=== PATIENT | female | born 1990 | race Caucasian/White ===

== ENCOUNTER 2018-06-08 16:45 | Inpatient (IN) ==
[2018-06-08] MEDS ORDERED: Sod Chloride 0.9% Inj 1,000 ML IV.CONT PRN (17:25)
[2018-06-08] MEDS ORDERED: fentaNYL Citrate Inj 100 MCG/2 ML Ampul IV.PUSH PRN ×2 (17:25)
[2018-06-08] MEDS ORDERED: Oxytocin 30 Units/500ml Premix 30 UNITS/500 ML BAG IV.SIG ONE (17:25)
[2018-06-08] MEDS ORDERED: Sodium Chlor 0.9% Inj 500 ML IV.SIG PRN (17:25)
[2018-06-08] MEDS ORDERED: Naloxone Inj 0.4 MG/ML Vial IV.PUSH PRN (17:25)
[2018-06-08] MEDS ORDERED: Citric Acid/Sodium Citrate Liq 30 ML UDC PO SCH (17:30)
--- NOTE | 2018-06-08 17:30 | ED ---
History of Present Illness Primary Care Physician: NOT REQUIRED Chief Complaint: ctx History of Present Illness: Pt is a 28y/o @ 39.5wks. She has PNC with Dr. Hudson. She presented yesterday for ctx and was 2cm. She re-presented today with ctx since 8:30pm last evening which have become intense 3hrs ago. She denies LOF, VB. +FM. She has a h/o CSx1 for bradycardia at 8cm. She desires . GBS neg. Weeks Gestation:: 39 Para: 1 : 2 Review of Systems All other systems reviewed negative except as stated in HPI PMFSH - History History Provided By: Patient - Surgical History Surgical History: Surgical History (Last Updated 05/25/18 @ 16:58 by Charly Medina MD) History of delivery - Tobacco History Second Hand Smoke Exposure: No Smoking Status: Never smoker - Alcohol History How Often Do You Have a Drink Containing Alcohol: Never - Travel History Recent Travel in the [place] Within the Last 8 Weeks: No Recent Travel Out of the Country Within the Last 8 Weeks: No - Immunization History Tetanus Immunization: <5 Years Medications and Allergies Active Medications: Active Medications Citric Acid/Sodium Citrate (Sodium Citrate/Citric Acid Liq) 30 ml PO FLEXIBLE NANNY IBIS Stop: 06/12/18 17:29 Fentanyl Citrate (Fentanyl Inj) 50 mcg IV.PUSH Q1H PRN PRN Reason: Pain Scale 3 - 5 Lactated Ringer's (Lr 1000 Ml Inj) 1,000 mls @ 125 mls/hr IV.CONT .Q8H [facility] Lactated Ringer's (Lr 1000 Ml Inj) 1,000 mls @ 3,000 mls/hr IV.SIG UNSCH PRN PRN Reason: compromise or epidural Sodium Chloride (Ns Inj) 500 mls @ 1,000 mls/hr IV.SIG UNSCH PRN PRN Reason: SEE LABEL COMMENTS Sodium Chloride (Ns Inj) 1,000 mls @ 100 mls/hr IV.CONT .Q10H PRN PRN Reason: SEE LABEL COMMENTS Lidocaine HCl (Xylocaine 1% Inj) 0.1 ml I-DERMAL PRN PRN PRN Reason: For IV start Stop: 06/11/18 17:24 Lidocaine HCl (Xylocaine 1% Inj) 10 ml INFILTRATN PRN PRN PRN Reason: For episiotomy repair Stop: 06/10/18 17:24 Mineral Oil (Muri-Lube Oil) 10 ml TOPICAL PRN PRN PRN Reason: PRN perineal massage Ondansetron HCl (Zofran Inj) 4 mg IV.PUSH Q6H PRN PRN Reason: NAUSEA OR VOMITING Sodium Chloride (Ns Flush) 2 ml IV.FLUSH PRN PRN PRN Reason: FLUSH AFTER USING IV ACCESS Sodium Chloride (Ns Flush) 2 ml IV.FLUSH BID IBIS Allergies Allergy/AdvReac Type Severity Reaction Status Date / Time No Known Allergies Allergy Verified 05/25/18 16:40 Home Medications Medication Instructions Recorded Confirmed Type PNV cmb#95-ferrous fumarate-FA 1 tab PO DAILY 05/25/18 06/08/18 History [] Exam Vital signs: Vital Signs 06/08/18 16:59 Temperature 97.7 F Respiratory Rate 18 Intake & Output 06/07/18 06/08/18 06/08/18 18:59 06:59 18:59 Weight 80 kg Narrative: General: well developed, well nourished, no acute distress HEENT: normocephalic atraumatic, extraocular movements intact, neck supple Abdomen: soft, gravid, nontender, nondistended Uterus: fundus term Extremities: full range of motion Skin: normal coloration, no rashes, no suspicious skin lesions noted Neurologic: cranial nerves 2-12 grossly intact, normal muscle tone, normal gait Psychiatric: normal mood and affect, appropriate FHTs: 130s, +accels, no decels, moderate variability, reactive [place]: ctx q2-3m Cvx: /-1 Assessment and Plan - Diagnosis (1) 39 weeks gestation of Code(s): Z3A.39 - 39 weeks gestation of Status: Acute (2) Previous section complicating Code(s): O34.219 - Maternal care for unspecified type scar from previous delivery Status: Acute (3) Uterine contractions during Code(s): O62.2 - Other uterine inertia Status: Acute - Plan 28y/o @ 39.5wks with h/o CSx1 in labor. -- admit to L&D -- CLD, CEFM/toco -- epidural/freeman PRN -- FHTs cat 1 -- GBS neg Dr. Paredes (communications coordinator) notified of pt status and agrees with plan of care. She will assume care of the pt. Courtesy orders placed. Discharge Plan - Physicians Team ED Provider: Rachel Elizabeth V Primary Care Provider: NOT REQUIRED, - Rxs /Orders / Referrals /Forms Prescriptions: No Action PNV cmb#95-ferrous fumarate-FA [] 28 mg iron- 800 mcg Tablet 1 tab PO DAILY - Discharge Instructions Print Language: Hebrew
[2018-06-08 17:35] VITALS: RESP 18
[2018-06-08 18:00] LABS: Baso % (Auto) 0.3 % (0.0-2.0); Eos # (Auto) 0.1 th/mm3 (0.0-0.4); Eos % (Auto) 0.6 % (0.0-4.0); Hematocrit 36.3 % (35.0-46.0); Lymph # (Auto) 1.8 th/mm3 (1.0-4.8); Lymph % (Auto) 14.8 % (9.0-44.0); Mean Corpuscular Volume 81.9 fL (80.0-100.0); Mean Platelet Volume 10.5 fL (7.0-11.0); Mono # (Auto) 0.6 th/mm3 (0.0-0.9); Mono % (Auto) 5.3 % (0.0-8.0); Neut # (Auto) 9.5 th/mm3 (1.8-7.7); Platelet Count 175 th/mm3 (150-450); Red Blood Count 4.44 mil/mm3 (4.00-5.30); Red Cell Distribution Width 15.4 % (11.6-17.2)
[2018-06-08] MEDS ORDERED: fentaNYL 2MCG-Bupiv 0.125% Epi 150 ML EPIDURAL ONE (18:04)
[2018-06-08 18:23] LABS: Amphetamine Urine With Conf Neg (Neg); Benzodiazepine Urine With Conf Neg (Neg)
[2018-06-08 18:29] LABS: Bilirubin,Urine Negative (Negative); Clarity,Urine Hazy (Clear); Color,Urine Yellow (Yellw/Straw); Glucose,Urine (UA) Negative (Negative); Leukocyte Esterase,Urine Small (Negative); Mucus,Urine Few /lpf (Occasional); Nitrite,Urine Negative (Negative); Specific Gravity,Urine 1.013 (1.002-1.035); Squamous Epithelial Cell,Urine 1 /hpf (0-5)
[2018-06-08] MEDS ORDERED: fentaNYL 2MCG-Bupiv 0.125% Epi 150 ML EPIDURAL SCH (19:00)
[2018-06-09] MEDS ORDERED: Lidocaine PF 1% Inj 5 ML Vial ONE (01:54)
[2018-06-09] MEDS ORDERED: Zolpidem Tartrate 5 MG Tablet PO PRN (02:53)
[2018-06-09] MEDS ORDERED: Bisacodyl 10 MG Supp RECTAL PRN (02:53)
[2018-06-09] MEDS ORDERED: Benzocaine 20% Top Spray 60 ML Can TOPICAL PRN (02:53)
[2018-06-09] MEDS ORDERED: Witch Hazel 50%/Glyderin 12.5% 40 Pad Jar RECTAL PRN (02:53)
[2018-06-09] MEDS ORDERED: Naloxone Inj 0.4 MG/ML Vial IV.PUSH PRN (02:53)
--- NOTE | 2018-06-09 02:55 | P.OBDELI ---
Weeks Gestation: 39 Patient Started Active Labor: Yes Medical Induction of Labor: No Artificial Rupture of Membrane: Yes Artificial ROM Date: 06/09/18 Artificial ROM Time: 02:00 Anesthesia: Epidural Episiotomy: none Vaginal Delivery: Normal Presentation: Occiput anterior Nuchal Cord: None Delayed Cord Clamping (45 sec): Yes Placenta: Spontaneous delivery, 3 vessel cord Laceration: 2 deg Repair: Chromic running Estimated blood loss (mL): 300 Infant: Male (living male after TOLAC from [facility] with clear fluid and no nuchal cord 8 and 9 apgars. Weight is pending )
[2018-06-09] MEDS ORDERED: Oxytocin 30 Units/500ml Premix 30 UNITS/500 ML BAG IV.CONT SCH (03:00)
[2018-06-09] MEDS: Acetaminophen 325 MG Tablet PO PRN ×3 (06:49→21:46)
[2018-06-09] MEDS: Senna/Docusate Sodium 8.6/50 MG Tablet PO SCH ×2 (13:44→21:47)
[2018-06-09] MEDS ORDERED: Diphtheria/Tetanus/Pertussis Vaccine Inj 0.5 ML Syringe IM ONE (16:00)
[2018-06-09] MEDS ORDERED: Measles/Mumps/Rubella Vaccine Inj 0.5 ML Vial SQ ONE (16:00)
[2018-06-10] MEDS: Acetaminophen 325 MG Tablet PO PRN ×2 (05:53→13:35)
--- NOTE | 2018-06-10 13:07 | P.PNOB ---
Subjective Post day: 1 Objective Vital Signs/I&O: Vital Signs 06/09/18 20:00 06/10/18 08:00 Temperature 98.1 F 97.5 F L Pulse Rate 97 H 84 Respiratory Rate 18 18 Blood Pressure 113/72 124/69 Result Diagrams: 06/08/18 17:38 Objective Remarks: GENERAL: Well-nourished, well-developed patient. CARDIOVASCULAR: Regular rate and rhythm without murmurs, gallops, or rubs. RESPIRATORY: Breath sounds equal bilaterally. No accessory muscle use. ABDOMEN/GI: Abdomen soft, non-tender. Fundus: Firm, non-tender at umbilicus. GENITOURINARY: Light to moderate bleeding. EXTREMITIES: No cyanosis or edema, non-tender, without signs of DVT. 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 [facility] Stop: 06/12/18 17:29 Fentanyl Citrate (Fentanyl Inj) 50 mcg IV.PUSH Q1H PRN PRN Reason: Pain Scale 3 - 5 Fentanyl Citrate (Fentanyl Inj) 100 mcg IV.PUSH Q1H PRN PRN Reason: PAIN SCALE 6 TO 10 Lactated Ringer's (Lr 1000 Ml Inj) 1,000 mls @ 125 mls/hr IV.CONT .Q8H [facility] Lactated Ringer's (Lr 1000 Ml Inj) 1,000 mls @ 3,000 mls/hr IV.SIG UNSCH PRN PRN Reason: compromise or epidural Sodium Chloride (Ns Inj) 500 mls @ 1,000 mls/hr IV.SIG UNSCH PRN PRN Reason: SEE LABEL COMMENTS Sodium Chloride (Ns Inj) 1,000 mls @ 100 mls/hr IV.CONT .Q10H PRN PRN Reason: SEE LABEL COMMENTS Fentanyl/Bupivacaine/Sodium Chlor (Fentanyl 2 Mcg-Bupiv 0.125% Epi) 150 mls @ 10 mls/hr EPIDURAL CONT IBIS Ibuprofen (Motrin) 800 mg PO Q8H PRN PRN Reason: For cramping Last Admin: 06/10/18 05:52 Dose: 800 mg Lactulose (Lactulose Liq) 30 ml PO DAILY PRN PRN Reason: SEVERE CONSITIPATION Lidocaine HCl (Xylocaine 1% Inj) 0.1 ml I-DERMAL PRN PRN PRN Reason: For IV start Stop: 06/11/18 17:24 Lidocaine HCl (Xylocaine 1% Inj) 10 ml INFILTRATN PRN PRN PRN Reason: For episiotomy repair Stop: 06/10/18 17:24 Mineral Oil (Muri-Lube Oil) 10 ml TOPICAL PRN PRN PRN Reason: PRN perineal massage Naloxone HCl (Narcan Inj) 0.1 mg IV.PUSH Q2M PRN PRN Reason: for opiate reversal Naloxone HCl (Narcan Inj) 0.1 mg IV.PUSH Q2M PRN PRN Reason: for opiate reversal Ondansetron HCl (Zofran Inj) 4 mg IV.PUSH Q6H PRN PRN Reason: NAUSEA OR VOMITING Ondansetron HCl (Zofran Odt) 4 mg PO Q6H PRN PRN Reason: NAUSEA OR VOMITING Senna/Docusate Sodium ([place]-Colace) 1 tab PO BID IBIS Last Admin: 06/09/18 21:47 Dose: 1 tab Sennosides (Senokot) 17.2 mg PO Q12H PRN PRN Reason: Moderate Constipation Sodium Chloride (Ns Flush) 2 ml IV.FLUSH PRN PRN PRN Reason: FLUSH AFTER USING IV ACCESS Sodium Chloride (Ns Flush) 2 ml IV.FLUSH BID IBIS Sodium Chloride (Ns Flush) 2 ml IV.FLUSH BID IBIS Sodium Chloride (Ns Flush) 2 ml IV.FLUSH PRN PRN PRN Reason: FLUSH AFTER USING IV ACCESS [place]/Glycerin (Tucks Pads) 1 applicatio RECTAL QID PRN PRN Reason: HEMORRHOIDS Last Admin: 06/09/18 12:00 Dose: 1 applicatio Zolpidem Tartrate (Ambien) 5 mg PO HS PRN PRN Reason: SLEEP Assessment and Plan - Plan Pt doing well pain well managed with oral medications bonding with infant routine care Discharge Planning: dc home today
--- NOTE | 2018-06-10 13:19 | P.DS ---
Date of admission: 06/08/18 17:34 Primary care physician: NOT REQUIRED Brief History from admission: Pt is a 28y/o @ 39.5wks. She has PNC with Dr. Hudson. She presented yesterday for ctx and was 2cm. She re-presented today with ctx since 8:30pm last evening which have become intense 3hrs ago. She denies LOF, VB. +FM. She has a h/o CSx1 for bradycardia at 8cm. She desires . GBS neg. DS: Diagnosis - Discharge Diagnosis (1) (normal spontaneous vaginal delivery) Status: Acute Diagnosis: Principal (2) Previous section complicating Status: Acute DS: Summary Hospital Course: term labor , previous c section routine care - Time Spent with Patient Total time spent providing and/or coordinating discharge services: Less than 30 minutes Exam Vital signs: Vital Signs 06/09/18 20:00 06/10/18 08:00 Temperature 98.1 F 97.5 F L Pulse Rate 97 H 84 Respiratory Rate 18 18 Blood Pressure 113/72 124/69 Narrative: see pp exam Results Procedures completed during hospitalization: Discharge Plan - Discharge Disposition Patient Disposition: 01 Discharge Home - Discharge Condition Condition: Good - Discharge Order Discharge Orders: Discharge Order (Routine); Ordered 06/10/18 Ordered By: Esther Souza DIRECTOR VETERINARY Clear for Discharge (Routine); Ordered 06/10/18 Ordered By: Esther Souza - Physicians Team Primary Care Provider: NOT REQUIRED, Attending Provider: Eulalia Paredes
[2018-06-11 19:47] VITALS: TEMP 97.5
[2018-06-11 19:50] VITALS: BP 124/69; PULSE 84
== END 2018-06-10 15:35 | disposition home or self-care (01) ==
LOC: HOBED 16:45 → H2E 17:20 → H1EA 06-09 05:24
PROVIDERS: ADMIT Obstetrics & Gynecology; ATTEND Obstetrics & Gynecology